=== PATIENT | female | born 1990 | race Caucasian/White ===

== ENCOUNTER 2018-10-24 00:10 | Emergency (ER) | payer BC ==
[~2018-10-24] VITALS: Ht 162.6 cm; Wt 62.1 kg
[2018-10-24 00:28] VITALS: BP 123/71
== END 2018-10-24 01:46 | disposition home or self-care (01) ==
LOC: ER 00:20
DX: S92.512A Displaced fracture of proximal phalanx of left lesser toe(s), initial encounter for closed fracture (principal); Z88.8 Allergy status to other drugs, medicaments and biological substances; W22.8XXA Striking against or struck by other objects, initial encounter; Y93.02 Activity, running; Y92.89 Other specified places as the place of occurrence of the external cause; Y99.8 Other external cause status
CPT/HCPCS: 73660-TC